=== PATIENT | female | born 1955 | race African-American/Black ===

== ENCOUNTER 2016-04-01 21:37 | Observation (INO) | payer OTHER ==
[~2016-04-01] VITALS: Ht 162.6 cm; Wt 96.7 kg
[~2016-04-01 21:37] MED LIST: ALBUTEROL17 G1 IH; AMLODIPINE BESYL5 MG PO; ASPIR-LOW81 MG PO; CHOLESTEROL MED; HYDROCHLOROTHIA25 MG PO; LASIX10 MG PO; LASIX40 MG PO; LEVOTHYROXINE25 MCG PO; LISINOPRIL20 MG PO; MACROBID100 MG PO; METRO VG; OMEPRAZOLE20 MG PO; OXYBUTYNIN CHLOR5 MG PO; PANTOPRAZOLE SO40 MG PO; PAXIL CR37.5 MG PO; PERCOCET 5/31 TABLET PO; PRAVASTATIN SOD40 MG PO; PREDNISONE20 MG PO; PROZAC40 MG PO; RANITIDINE HCL150 M1 PO; SEROQUEL50 MG PO; TRAZODONE HCL100 MG PO; VENLAFAXINE HC150 MG PO; VENLAFAXINE HCL75 M2 PO; VIIBRYD10 MG PO; VITAMIN B CO1 TABLET PO; VITAMIN D PO; ZANTAC150 MG PO; ZESTRIL,PRINIVI20 MG PO
[2016-04-01 22:15] LABS: HEMATOCRIT 41.5 % (36.0-46.0); MCH 29.6 PG (29.0-34.0); MCHC 33.5 G/DL (30.0-36.0); MCV 88.5 FL (83-99); MEAN PLAT.VOLUME 10.5 uM^3 (9.5-12.4); PLATELET COUNT 344 K/uL (156-360); RBC DIS.WIDTH-SD 44.2 % (39-53); RED BLOOD COUNT 4.69 M/uL (3.80-5.20); WHITE BLOOD COUNT 7.2 K/uL (4.1-10.2)
[2016-04-01 22:25] LABS: CHLORIDE 105 mEq/L (99-109); POTASSIUM 3.7 mEq/L (3.7-5.4); SODIUM 141 mEq/L (136-147)
[2016-04-01 22:27] LABS: GLUCOSE 93 mg/dL (70-99)
[2016-04-01 22:28] LABS: ANION GAP 10 MEQ/L (2-14)
[2016-04-01 22:30] LABS: GFR ESTIMATE (CALCULATED) > 59 mL/min/
[2016-04-01 22:31] LABS: UREA NITROGEN (BUN) 10 mg/dL (9-23)
[2016-04-01 22:32] LABS: TROP-I INTERPRETATION NEGATIVE; TROPONIN-I < 0.01 ng/mL (0.0-0.30)
[2016-04-01] MEDS ORDERED: AMLODIPINE BESYL5 MG PO (23:51)
[2016-04-01] MEDS ORDERED: VIIBRYD20 MG PO (23:51)
[2016-04-01] MEDS ORDERED: CRESTOR10 MG PO (23:51)
[2016-04-01] MEDS ORDERED: PROTONIX40 MG PO (23:51)
[2016-04-01] MEDS ORDERED: LEVOTHYROXINE25 MCG PO (23:52)
[2016-04-01] MEDS ORDERED: DESYREL100 MG PO (23:52)
[2016-04-01] MEDS ORDERED: MELOXICAM7.5 MG PO (23:52)
[2016-04-01] MEDS ORDERED: RANITIDINE HCL150 MG PO (23:52)
[2016-04-01] MEDS ORDERED: COMBIVENT RESPIM4 GM IH (23:52)
[2016-04-02 02:00] LABS: TOTAL BILIRUBIN 0.4 mg/dL (0.0-1.0)
[2016-04-02 02:01] LABS: ALKALINE PHOSPHATASE 113 IU/L (3-129)
[2016-04-02 02:04] LABS: DIRECT BILIRUBIN 0.1 mg/dL (0.0-0.3)
[2016-04-02 02:05] LABS: LIPASE 48 U/L (1.0-51.0)
[2016-04-02 04:58] LABS: TROP-I INTERPRETATION NEGATIVE; TROPONIN-I < 0.01 ng/mL (0.0-0.30)
[2016-04-02 07:17] VITALS: BP 143/92
[2016-04-02] MEDS ORDERED: ASPIR-LOW81 MG PO (09:21)
[2016-04-02 10:10] LABS: D-DIMER ELISA 0.48 mg/L FEU (< 0.57)
[2016-04-02 10:36] LABS: TROP-I INTERPRETATION NEGATIVE; TROPONIN-I < 0.01 ng/mL (0.0-0.30)
[2016-04-02 12:02] VITALS: BP 157/66
== END 2016-04-02 13:31 | disposition home or self-care (01) ==
LOC: EME 21:37 → EDOF 04-02 01:18 → 5WEST 04-02 07:01
PROVIDERS: Hospitalist
DX: R07.89 Other chest pain (principal); J44.9 Chronic obstructive pulmonary disease, unspecified; J45.909 Unspecified asthma, uncomplicated; I11.9 Hypertensive heart disease without heart failure; E78.5 Hyperlipidemia, unspecified; E03.9 Hypothyroidism, unspecified; F17.200 Nicotine dependence, unspecified, uncomplicated; F41.9 Anxiety disorder, unspecified; F32.9 Major depressive disorder, single episode, unspecified
CPT/HCPCS: 71020; 80048; 80076; 83690; 84484; 85027; 85379; 93005; 94640; 99202; 99281; 99285; G0378; J2270

== ENCOUNTER → 2016-10-30 | Outpatient (CLI) | payer OTHER ==
[~2016-10-30] MED LIST changes: +COMBIVENT RESPIM4 GM IH; +CRESTOR10 MG PO; +DESYREL100 MG PO; +MELOXICAM7.5 MG PO; +PROTONIX40 MG PO; +RANITIDINE HCL150 MG PO; +VIIBRYD20 MG PO
== END | disposition home or self-care (01) ==
LOC: RAD 13:34
DX: M17.11 Unilateral primary osteoarthritis, right knee (principal); M22.2X1 Patellofemoral disorders, right knee; M85.88 Other specified disorders of bone density and structure, other site; M25.562 Pain in left knee; G89.29 Other chronic pain
CPT/HCPCS: 73564

== ENCOUNTER 2017-02-23 14:08 | Emergency (ER) | payer OTHER ==
[~2017-02-23] VITALS: Ht 162.6 cm; Wt 98.7 kg
[2017-02-23 15:27] LABS: HEMATOCRIT 45.5 % (36.0-46.0); HEMOGLOBIN 15.3 G/DL (11.9-15.5); MCH 30.4 PG (29.0-34.0); MCHC 33.6 G/DL (30.0-36.0); MCV 90.5 FL (83-99); PLATELET COUNT 322 K/uL (156-360); RED BLOOD COUNT 5.03 M/uL (3.80-5.20); WHITE BLOOD COUNT 7.9 K/uL (4.1-10.2)
[2017-02-23 15:41] LABS: ALBUMIN 4.7 g/dL (3.2-4.8); CHLORIDE 107 mEq/L (99-109); POTASSIUM 4.1 mEq/L (3.7-5.4); SODIUM 142 mEq/L (136-147)
[2017-02-23 15:44] LABS: GLUCOSE 98 mg/dL (70-99); TOTAL PROTEIN 8.3 g/dL (6.4-8.3)
[2017-02-23 15:46] LABS: TOTAL BILIRUBIN 0.7 mg/dL (0.0-1.0)
[2017-02-23 15:47] LABS: ALKALINE PHOSPHATASE 114 IU/L (3-129); CREATININE 1.3 mg/dL (0.6-1.3); GFR ESTIMATE (CALCULATED) 54 mL/min/
[2017-02-23 15:48] LABS: UREA NITROGEN (BUN) 15 mg/dL (9-23)
[2017-02-23 15:49] LABS: AST (GOT) 18 IU/L (2-34)
[2017-02-23 15:50] LABS: ALT (GPT) 17 IU/L (3-49)
[2017-02-23 18:00] LABS: APPEARANCE SL.HAZY ((CLEAR)); BILIRUBIN SMALL; BLOOD SMALL; COLOR AMBER ((YELLOW)); GLUCOSE (STRIP) NEGATIVE; KETONES NEGATIVE; LEUKOCYTES SMALL; NITRITE NEGATIVE; PROTEIN (STRIP) 30; SPECIFIC GRAVITY 1.028 (1.000-1.030)
[2017-02-23 18:07] LABS: BACTERIA RARE /HPF; EPITHELIAL CELLS 1+ /HPF; MUCUS TRACE /LPF; RED BLOOD CELLS 15-20 /HPF (0-5); UCUL ADDED? NO; WHITE BLOOD CELLS 0-5 /HPF (0-5)
[2017-02-23] MEDS ORDERED: CLEOCIN300 MG PO (18:30)
[2017-02-23 18:53] VITALS: BP 142/88
== END 2017-02-23 18:54 | disposition home or self-care (01) ==
LOC: EME 14:08
DX: L03.311 Cellulitis of abdominal wall (principal); K76.0 Fatty (change of) liver, not elsewhere classified; I10 Essential (primary) hypertension; J44.9 Chronic obstructive pulmonary disease, unspecified; F32.9 Major depressive disorder, single episode, unspecified; F41.9 Anxiety disorder, unspecified; K21.9 Gastro-esophageal reflux disease without esophagitis; F17.200 Nicotine dependence, unspecified, uncomplicated; Z88.0 Allergy status to penicillin
CPT/HCPCS: 74177; 80053; 81003; 85027; 87070; 87075; 87076; 87077; 87185; 87205; 99281; 99284; J1200; J2930; J7030